=== PATIENT | male | born 1980 | race Caucasian/White ===

== ENCOUNTER 2016-12-29 11:00 | Inpatient (IN) | payer OTHER ==
--- NOTE | ~2016-12-29 | PN ---
Unit #: [id number] #: [id number] Patient: DEMETRIO SOTO [id number] [facility] [address] [place] [address] [id number] I MR#: [id number] NAME: DEMETRIO SOTO. ROOM: P181 Age: 36 Sex: M Admission Date: 12/29/2016 : 1980 Attending Physician: Xander Escalante M.D. Admitting Physician: Xander Escalante M.D. Primary Care Physician: Ean Doctor Not In System [facility] PROGRESS NOTES DATE OF SERVICE 01/01/2017 DISCUSSION Mr. Soto is a 36-year-old white male who was seen today. Chart was reviewed and case was discussed with staff. He has been anxious and withdrawn though appears to be doing better with his detox and has been cooperative with treatment recommendations and has been taking the medications and tolerating them fairly well. MENTAL STATUS EXAMINATION Young white male who is casually dressed with fair personal hygiene, appears to be in no acute distress or discomfort. The patient was awake and alert on interaction with intact orientation. His mood is anxious with congruent affect. He denies any suicidal or homicidal ideations and also denies any auditory or visual hallucinations. His insight and judgment remain slightly impaired. TREATMENT PLAN 1. We will continue him on his current medications and treatment protocol. We will monitor his response to the medications and make further adjustments as needed. 2. We will continue to follow up. Dictated by... Xander Escalante M.D. IAA/bzg TD: 01/01/2017 08:18 JOB #: [id number] Unit #: [id number] #: [id number] Patient: DEMETRIO SOTO [facility] PROGRESS NOTES Page 1 of 1 X Xander Escalante MD X PROGRESS NOTE
--- NOTE | ~2016-12-29 | PN ---
Unit #: [id number] #: [id number] Patient: DEMETRIO SOTO [id number] [facility] [address] [place] [address] [id number] I MR#: [id number] NAME: DEMETRIO SOTO. ROOM: P181 Age: 36 Sex: M Admission Date: 12/29/2016 : 1980 Attending Physician: Xander Escalante M.D. Admitting Physician: Xander Escalante M.D. Primary Care Physician: Ean Doctor Not In System [facility] PROGRESS NOTES DATE 01/02/2017 DISCUSSION Mr. Soto is a 36-year-old white male who was seen today and chart was reviewed and case was discussed with the staff. He has been anxious, withdrawn and rather seclusive to himself. Meanwhile, he has been cooperative with treatment recommendations and has been taking medications and tolerating them fairly well with no reported side effects. MENTAL STATUS EXAMINATION Young white male who was casually dressed with fair personal hygiene and appears to be in no acute distress or discomfort. He was awake and alert on interaction with intact orientation. His mood was anxious with congruent affect. He denies any suicidal or homicidal ideation and also denies any auditory or visual hallucinations. His insight and judgement remains slightly impaired. TREATMENT PLAN 1. Will continue on his current medications and treatment protocol and will monitor his response to the medications and make further adjustments as needed. 2. Will continue to follow up. Dictated by... Lisa Ojeda/nohelia TD: 01/02/2017 19:54 JOB #: [id number] Unit #: [id number] #: [id number] Patient: DEMETRIO SOTO [facility] PROGRESS NOTES Page 1 of 1 X Xander Escalante MD PROGRESS NOTE
--- NOTE | ~2016-12-29 | PA ---
Unit #: [id number] #: [id number] Patient: DEMETRIO SOTO [id number] [facility] [address] [place] [address] [id number] I MR#: [id number] NAME: DEMETRIO SOTO. ROOM: P184 Age: 36 Sex: M Admission Date: 12/29/2016 : 1980 Date of Assessment: 12/30/2016 Attending Physician: Xander Escalante M.D. Admitting Physician: Xander Escalante M.D. Primary Care Physician: Generic Doctor Not In System PSYCHIATRIC ASSESSMENT DATE OF SERVICE 12/30/2016. IDENTIFYING DATA Mr. Soto is a 36-year-old single white male, who is a resident of [place], [place], and was self-referred to the hospital on a voluntary basis. CHIEF COMPLAINT "I'm an alcoholic and I want to quit." HISTORY OF PRESENT ILLNESS Mr. Soto is a 36-year-old white male with history of alcohol dependence, who was self-referred to the hospital stating that he wants to quit, "I see things and hear things and I don't want to drive myself off a bridge. I've conversations in my head all the time about my life and I just don't want to be here and I keep drinking, want to drink all the time. At the time I'm drunk, I don't know how much I've drunk and at one point, I started with a pint of whatever and 12 pack of beer and a gram of cocaine and the voice has trot in the thoughts of killing myself soon after. In the last 72 hours, I've used pot and alcohol and 3 joints and a pint of bourbon and I want to ." He does report increasing depression, anxiety, irritability, restlessness, feelings of hopelessness and helplessness, and suicidal ideations as well as command auditory hallucinations. SUBSTANCE ABUSE HISTORY The patient reports history of alcohol, cannabis, cocaine, acid, opioids, inhalants, and currently alcohol and cocaine appear to be his drug of choice. PAST PSYCHIATRIC HISTORY The patient has not had any prior history of inpatient or outpatient psychiatric or chemical dependency treatment. Review of the medical records indicate currently he is not active in treatment program, is not seeing a psychiatrist, and is not taking any psychotropic medications. PAST MEDICAL HISTORY No acute or chronic medical illnesses. ALLERGIES No known medication allergies. Unit #: [id number] #: [id number] Patient: DEMETRIO SOTO PERSONAL AND SOCIAL HISTORY A 36-year-old white male, who reports that he is single, unemployed, and lives alone and has poor social support system. MENTAL STATUS EXAMINATION Young white male who was casually dressed with fair personal hygiene, appears to be in no acute distress or discomfort. He was awake and alert on interaction with intact orientation to time, place, and person. His mood was anxious and depressed with a congruent affect. His speech was slow and restricted in content. His thought processes were disorganized with some looseness of associations and suicidal ideations and auditory hallucinations. His insight and judgment remain significantly impaired. DIAGNOSTIC IMPRESSION Psychiatric: Major depressive disorder, recurrent, moderate, with psychosis; alcohol dependence, moderate and acute withdrawals; cocaine dependence, moderate; cannabis dependence, moderate. Medical: None. Stressors: Moderate psychosocial stressors. TREATMENT PLAN 1. The patient has presented with history of substance abuse and mood disorder, and has been decompensating and will need inpatient hospitalization for detoxification, safety, and stabilization. We will start him back on his home medications and detox protocol will be initiated. 2. Supportive therapy was provided to the patient. 3. Safe, structured, and nourishing environment will be provided. ESTIMATED LENGTH OF STAY 5 to 7 days. ABILITY TO HELP SELF Limited. WILLINGNESS TO HELP SELF The patient appears to be willing to help self. STRENGTHS 1. Communicative. 2. Cooperative. PROBLEMS 1. Chronic dysphoric symptoms. 2. Chronic chemical dependency. 3. Poor social support system. DISCHARGE CRITERIA This will be contingent upon the patient's ability to go through detox without having any significant withdrawal symptoms as well as his ability to stay safe to himself, particularly after discharge from the hospital. Dictated by... Lisa Ojeda/celine Unit #: [id number] #: [id number] Patient: DEMETRIO SOTO TD: 12/30/2016 08:04 JOB #: [id number] PSYCHIATRIC ASSESSMENT Page 1 of 1 X Xander Escalante MD X PSYCHIATRIC ASSESSMENT
--- NOTE | ~2016-12-29 | PN ---
Unit #: [id number] #: [id number] Patient: DEMETRIO SOTO [id number] [facility] [address] [place] [address] [id number] I MR#: [id number] NAME: DEMETRIO SOTO. ROOM: P184 Age: 36 Sex: M Admission Date: 12/29/2016 : 1980 Attending Physician: Xander Escalante M.D. Admitting Physician: Xander Escalante M.D. Primary Care Physician: Ean Doctor Not In System [facility] PROGRESS NOTES DATE OF SERVICE 12/31/2016 DISCUSSION Mr. Soto is a 36-year-old white male with alcohol dependence and mood disorder who was seen today. Chart was reviewed and case was discussed with the staff. He has been anxious, withdrawn though has not shown any agitation and appears to be (1) __ detox symptoms. Meanwhile, he has been taking the medications and tolerating them fairly well with no reported side effects. MENTAL STATUS EXAMINATION Young white male who is casually dressed with fair personal hygiene, appears to be in no acute distress or discomfort. He was awake and alert on interaction with intact orientation. His mood is anxious with congruent affect. He denies any suicidal or homicidal ideations and also denies any auditory or visual hallucinations. His insight and judgment remain slightly impaired. TREATMENT PLAN 1. We will continue him on his current medications and treatment protocol. We will monitor his response to the medications and make further adjustments as needed. 2. We will continue to follow up. Dictated by... Lisa Ojeda/tomasg TD: 12/31/2016 09:04 JOB #: [id number] Unit #: [id number] #: [id number] Patient: DEMETRIO SOTO [facility] PROGRESS NOTES Page 1 of 1 X Xander Escalante MD PROGRESS NOTE
--- NOTE | ~2016-12-29 | HP ---
Unit #: [id number] #: [id number] Patient: DEMETRIO SOTO [id number] [place] [address] [id number] I MR#: [id number] NAME: DEMETRIO SOTO. ROOM: P184 Age: 36 Sex: M Admission Date: 12/29/2016 : 1980 Attending Physician: Xander Escalante M.D. Admitting Physician: Xander Escalante M.D. Primary Care Physician: Generic Doctor Not In System HISTORY AND PHYSICAL HISTORY OF PRESENT ILLNESS Demetrio is a 36 year old, admitted to [facility] because of his abuse of alcohol. PAST MEDICAL HISTORY Long history of alcohol abuse. PAST SURGICAL HISTORY Right hand. ALLERGIES No known drug allergies. SOCIAL HISTORY He smokes one half pack per day. He drinks, at least a pint plus six beers on a daily basis and admits to using cocaine on occasion. FAMILY HISTORY Medically noncontributory. REVIEW OF SYSTEMS CONSTITUTIONAL: No fever or chills. HEENT: Denies any sore throat, ear pain or runny nose. CARDIOVASCULAR: Denies chest pain, irregular heart rhythm or palpitations. CHEST: Denies shortness of breath or cough. No hemoptysis. GASTROINTESTINAL: Denies nausea, vomiting, diarrhea or chronic constipation. ENDOCRINE: Denies history of increased thirst or urination. No recent significant weight loss or gain. GENITOURINARY: Denies dysuria, frequency, or hematuria. SKIN: Denies any rashes. HEMATOLOGIC: Denies history of increased bleeding or bruising. MUSCULOSKELETAL: Denies any hot, swollen joints. No generalized muscle pain. NEUROLOGIC: Denies problems with vision or speech. No frequent, severe headaches. No numbness, tingling or weakness in any extremities. Denies loss of bladder or bowel control. CURRENT MEDICATIONS Detox protocol. PHYSICAL EXAMINATION GENERAL: Alert, well-nourished, and no apparent distress. Unit #: [id number] #: [id number] Patient: DEMETRIO SOTO VITAL SIGNS: Blood pressure 110/78, heart rate 94, respirations 16, and temperature 98.6. WEIGHT: 128 pounds. HEIGHT: 5 feet 5 inches. SKIN: Warm and dry without rash or lesion. HEENT: Normocephalic. TMs not viewed. Oral and nasal passages clear. Conjunctivae clear. PERRLA. EOMs intact. NECK: Supple without lymphadenopathy or thyromegaly. HEART: Regular rate and rhythm without murmur. LUNGS: Clear. ABDOMEN: Soft, nontender. : Not done. EXTREMITIES: No evidence of cyanosis, clubbing or edema. Moves all without focal deficit. NEUROLOGICAL: Grossly within normal limits. Cranial Nerves: II: Visual almonte are intact. III, IV AND : Extraocular movements are intact. Pupils are equal, round and reactive to light. V: Facial sensation is grossly normal. VII: Facial movements and expression are normal. VIII: Auditory acuity grossly intact. IX, X: Uvula is midline. Phonation is normal. XI: Patient shrugs shoulders and turns head normally. XII: Tongue protrudes in the midline. Sensory and Motor Function: Sensory and motor sensation is grossly normal. Motor: moves all extremities well. Coordination: Gait is normal. Deep Tendon Reflexes: Intact. IMPRESSION Psychiatric admission. RECOMMENDATIONS Psychiatric, per psychiatrist. MEDICAL I see no contraindications to participating in facility's activities. MEDICAL PROGNOSIS Good. MEDICAL CONDITION Stable. Dictated by... Bre Knutson PEugenioAJean-Claude. for Lisa Mike/chintan TD: 12/30/2016 12:56 JOB #: [id number] Unit #: [id number] #: [id number] Patient: DEMETRIO SOTO HISTORY AND PHYSICAL Page 1 of 1 X Bre Knutson HISTORY AND PHYSICAL
--- NOTE | ~2016-12-29 | DS ---
Unit #: [id number] #: [id number] Patient: DEMETRIO SOTO [id number] [facility] [address] [place] [address] [id number] MR#: [id number] NAME: DEMETRIO SOTO. ROOM: P181 Age: 36 Sex: M Admission Date: 12/29/2016 : 1980 Discharge Date: 01/03/2017 Attending Physician: Xander Escalante M.D. Primary Care Physician: Generic Doctor Not In System DISCHARGE SUMMARY IDENTIFICATION DATA The patient is a 36-year-old single white male, who is a resident of [facility], and was self-referred to the hospital on voluntary basis. DISCHARGE DIAGNOSES Psychiatric: Major depressive disorder, recurrent, moderate, without psychotic features; alcohol dependence, moderate and acute withdrawals; cocaine dependence, moderate; cannabis dependence, moderate. Medical: None. Stressors: Moderate psychosocial stressors. HISTORY OF PRESENT ILLNESS Mr. Soto is a 36-year-old white male with history of alcohol dependence, who was self-referred to the hospital stating that he wants to quit, "I see things and hear things and I don't want to drive myself off a bridge. I've conversations in my head all the time about my life and I just don't want to be here and I keep drinking, want to drink all the time. At the time I'm drunk, I don't know how much I've drunk and at one point, I started with a pint of whatever and 12 pack of beer and a gram of cocaine and the voice has trot in the thoughts of killing myself soon after. In the last 72 hours, I've used pot and alcohol and 3 joints and a pint of bourbon and I want to ." He does report increasing depression, anxiety, irritability, restlessness, feelings of hopelessness and helplessness, and suicidal ideations as well as command auditory hallucinations. PAST PSYCHIATRIC HISTORY The patient has not had any prior history of inpatient or outpatient psychiatric or chemical dependency treatment. Review of the medical records indicate currently he is not active in treatment program, is not seeing a psychiatrist, and is not taking any psychotropic medications. PAST MEDICAL HISTORY No acute or chronic medical illnesses HOSPITAL COURSE The patient was admitted to the adult chemical dependency unit at [facility] and was oriented to the hospital environment. Routine p.r.n. medications were initiated and he was started back on his home medication and detox protocol was initiated and was closely monitored. He was taking the medications regularly and was tolerating it and was able to come out of the detox without any complications and as such, it was decided that she will be discharged home. We will continue treatment on an outpatient basis. Unit #: [id number] #: [id number] Patient: DEMETRIO SOTO DISCHARGE MEDICATIONS 1. Remeron 15 mg at bedtime for depression. 2. Vistaril 50 mg p.r.n. q.6 hours for anxiety. DISCHARGE CONDITION Stable. PROGNOSIS Fair. Dictated by... Lisa Ojeda/celine TD: 01/03/2017 13:17 JOB #: [id number] DISCHARGE SUMMARY Page 1 of 1 X Xander Escalante MD X DISCHARGE SUMMARY
[2016-12-30 12:39] LABS: BASOPHIL# 0.1 X10e3 (0-0.3); BASOPHIL% 1.2 % (0-2.5); EOSINOPHIL# 0.3 X10e3 (0-0.7); EOSINOPHIL% 3.2 % (0.0-7.0); HEMATOCRIT 45.1 % (38.0-50.0); HEMOGLOBIN 14.8 gm/dL (13.0-16.0); LYMPHOCYTE# 1.7 X10e3 (1.0-3.5); LYMPHOCYTE% 19.1 % (17.0-45.0); MEAN CELL VOLUME 92.2 FL (83-96); MEAN CORPUSCULAR HEMOGLOBIN 30.3 PG (28-34); MEAN CORPUSCULAR HGB CONC 32.8 g/dL (30-36); MEAN PLATELET VOLUME 8.3 FL (6.5-11.5); MONOCYTE# 0.8 X10e3 (0-1.0); MONOCYTE% 9.3 % (3.0-12.0); NEUTROPHIL# 5.8 X10e3 (1.5-7.1); NEUTROPHIL% 67.2 % (40-75); PLATELET COUNT 306 X10e3 (140-420); RED BLOOD COUNT 4.89 X10e (3.90-5.60); RED CELL DISTRIBUTION WIDTH 14.4 % (11.0-15.5); WHITE BLOOD COUNT 8.7 X10e3 (4.0-10.5)
[2016-12-30 12:41] LABS: ALBUMIN SERUM 4.1 g/dL (3.5-5.0); BILIRUBIN,TOTAL 0.7 mg/dL (0.2-2.0); CALCIUM SERUM 9.3 mg/dL (8.4-10.2); CREATININE SERUM 0.6 mg/dL (0.6-1.4); GLOM FILT RATE Estimated 128.5 mL/min (>60); POTASSIUM 4.7 mmol/L (3.5-5.1); PROTEIN TOTAL SERUM 6.4 g/dL (6.0-8.3)
[2016-12-30 12:47] LABS: DIFF IND NO
[2016-12-31 09:58] LABS: URINE APPEARANCE CLEAR; URINE BILIRUBIN NEG (NEG); URINE BLOOD NEG (NEG); URINE COLOR DK YELLOW; URINE GLUCOSE NEG (NEG); URINE KETONE NEG (NEG); URINE LEUKOCYTE ESTERASE NEG (NEG); URINE NITRATE NEG (NEG); URINE PH 6.5 (5-8); URINE PROTEIN NEG (NEG); URINE SPECIFIC GRAVITY 1.005 (1.003-1.035); URINE UROBILINOGEN 0.2 MG/DL (NEG)
[2016-12-31 12:14] LABS: AMPHETAMINE NEG (NEG); BARBITURATES NEG (NEG); BENZODIAZEPINES NEG (NEG); COCAINE NEG (NEG); MARIJUANA NEG (NEG); OPIATES NEG (NEG); TRICYCLIC ANTIDEPRESSANTS NEG (NEG); U METHADONE NEG (NEG)
== END 2017-01-03 10:07 | disposition home or self-care (01) | DRG 885 ==
LOC: P1E 15:20
PROVIDERS: Psychiatry & Neurology Psychiatry
PROC: HZ2ZZZZ Detoxification Services for Substance Abuse Treatment (ICD-10-PCS; principal; 2016-12-29)
DX: F33.1 Major depressive disorder, recurrent, moderate (principal); F14.20 Cocaine dependence, uncomplicated; R45.851 Suicidal ideations; F10.239 Alcohol dependence with withdrawal, unspecified; F12.20 Cannabis dependence, uncomplicated; F17.210 Nicotine dependence, cigarettes, uncomplicated; F41.9 Anxiety disorder, unspecified
CPT/HCPCS: 80053; 80307; 81003; 85025; 86592